=== PATIENT | female | born 1970 | race Caucasian/White ===

== ENCOUNTER 2018-11-14 20:38 | Emergency (ER) | payer OTHER ==
[~2018-11-14] VITALS: Ht 167.6 cm; Wt 116.7 kg
--- NOTE | 2018-11-14 22:44 | NUR ---
NA WHEN CALLED TO BE ROOMED
--- NOTE | 2018-11-14 22:50 | NUR ---
NA X2
[2018-11-14] MEDS ORDERED: LISI-167 PO (23:02)
--- NOTE | 2018-11-14 23:04 | NUR ---
pt presented with c/o ruq abd pain x4 day, nausea started 15 mins ago, denies vomiting or diarreha, denies injury. provided pt with gown, monitors applied, siderails up x2, call light within reach
[2018-11-14 23:14] LABS: BASOPHILS # (AUTO) 0.17 x10^3/uL (0-0.1); BASOPHILS % (AUTO) 1 % (0-1); EOSINOPHILS # (AUTO) 0.33 x10^3/uL (0-0.4); EOSINOPHILS % (AUTO) 3 % (1-7); LYMPHOCYTES # (AUTO) 3.56 x10^3/uL (1-3.4); LYMPHOCYTES % (AUTO) 27 % (22-44); MD NO; MEAN CORPUSCULAR HEMOGLOBIN 25.9 pg (27.0-34.8); MEAN CORPUSCULAR VOLUME 78.5 fL (80-100); MEAN PLATELET VOLUME 8.7 fL (7.4-10.4); MONOCYTES # (AUTO) 0.82 x10^3/uL (0.2-0.8); MONOCYTES % (AUTO) 6 % (2-9); NEUTROPHILS # (AUTO) 8.48 x10^3/uL (1.8-6.8); NEUTROPHILS % (AUTO) 64 % (42-75); PLATELET COUNT 507 x10^3/uL (130-400); RED BLOOD COUNT 4.95 x10^6/uL (3.82-5.3)
[2018-11-14 23:26] LABS: ALANINE AMINOTRANSFERASE 23 U/L (12-78); ALBUMIN 3.4 g/dL (3.4-5.0); ANION GAP 5 mmol/L (5-15); CALCIUM 8.5 mg/dL (8.5-10.1); CHLORIDE 110 mmol/L (98-107); CREATININE 0.88 mg/dL (0.55-1.02)
[2018-11-14 23:28] LABS: ALKALINE PHOSPHATASE 63 U/L (45-117); BILIRUBIN,TOTAL 0.1 mg/dL (0.2-1.0)
[2018-11-14 23:59] LABS: CULTURE INDICATED? NO; HCG UR SG 1.006 (1.003-1.030); MICROSCOPIC AUTO
[2018-11-15 00:39] VITALS: BP 143/85
== END 2018-11-15 00:42 | disposition home or self-care (01) ==
LOC: ED 23:34
DX: R10.11 Right upper quadrant pain (principal); R11.0 Nausea; Z87.891 Personal history of nicotine dependence; I10 Essential (primary) hypertension
CPT/HCPCS: 36415; 76700; 80053; 81001; 81025; 83690; 85025; 99284

== ENCOUNTER 2018-11-18 15:04 | Emergency (ER) | payer OTHER ==
[~2018-11-18] VITALS: Ht 167.6 cm; Wt 114.0 kg
[~2018-11-18 15:04] MED LIST: LISI-167 PO
[2018-11-18] MEDS ORDERED: ONDANSETRON ODT 4 MG PO ONE (15:30)
[2018-11-18 15:58] LABS: BASOPHILS # (AUTO) 0.05 x10^3/uL (0-0.1); BASOPHILS % (AUTO) 0 % (0-1); EOSINOPHILS # (AUTO) 0.27 x10^3/uL (0-0.4); EOSINOPHILS % (AUTO) 2 % (1-7); LYMPHOCYTES # (AUTO) 3.07 x10^3/uL (1-3.4); LYMPHOCYTES % (AUTO) 27 % (22-44); MD NO; MEAN CORPUSCULAR HEMOGLOBIN 25.7 pg (27.0-34.8); MEAN CORPUSCULAR HGB CONC 32.6 g/dL (32.4-35.8); MEAN CORPUSCULAR VOLUME 78.6 fL (80-100); MEAN PLATELET VOLUME 8.8 fL (7.4-10.4); MONOCYTES # (AUTO) 0.67 x10^3/uL (0.2-0.8); MONOCYTES % (AUTO) 6 % (2-9); NEUTROPHILS # (AUTO) 7.34 x10^3/uL (1.8-6.8); NEUTROPHILS % (AUTO) 64 % (42-75); PLATELET COUNT 528 x10^3/uL (130-400); RED BLOOD COUNT 5.18 x10^6/uL (3.82-5.3); RED CELL DISTRIBUTION WIDTH 16.3 % (9.6-15.2)
[2018-11-18] MEDS ORDERED: PLEASE ENTER HEIGHT AND WEIGHT MC SCH (16:00)
[2018-11-18 16:11] LABS: ALBUMIN 3.6 g/dL (3.4-5.0); ANION GAP 6 mmol/L (5-15); CALCIUM 8.6 mg/dL (8.5-10.1); CHLORIDE 111 mmol/L (98-107)
[2018-11-18 16:17] LABS: ALANINE AMINOTRANSFERASE 21 U/L (12-78); ALKALINE PHOSPHATASE 63 U/L (45-117); BILIRUBIN,TOTAL 0.5 mg/dL (0.2-1.0); CREATININE 0.87 mg/dL (0.55-1.02); TOTAL PROTEIN 7.2 g/dL (6.4-8.2)
[2018-11-18 16:37] VITALS: BP 123/79
--- NOTE | 2018-11-18 16:37 | NUR ---
Pt reports RUQ pain x 3-4 days. States unable to follow up with GI, and pain is increasingly worse.
[2018-11-18 16:42] LABS: HCG UR SG 1.034 (1.003-1.030)
[2018-11-18 16:43] LABS: MICROSCOPIC INDICATED
[2018-11-18 16:51] LABS: CULTURE INDICATED? YES
[2018-11-18] MEDS ORDERED: DICYCLOMINE 10 MG/ML, 2ML IM ONE (17:00)
[2018-11-18] MEDS ORDERED: PROMETHAZINE 25 MG/ML, 1ML IM ONE (17:00)
[2018-11-18] MEDS ORDERED: PROMETHAZINE 25 MG/ML, 1ML ONE (17:10)
[2018-11-18] MEDS ORDERED: DICYCLOMINE 10 MG/ML, 2ML ONE (17:11)
== END 2018-11-18 18:11 | disposition home or self-care (01) ==
LOC: ED 16:37
DX: R10.11 Right upper quadrant pain (principal); R11.2 Nausea with vomiting, unspecified; I10 Essential (primary) hypertension; Z87.891 Personal history of nicotine dependence
CPT/HCPCS: 36415; 80053; 81001; 81025; 83690; 85025; 87086; 96372; 99283; J0500; J2550; Q0162

== ENCOUNTER 2018-11-25 13:48 | Emergency (ER) | payer OTHER ==
[~2018-11-25] VITALS: Ht 167.6 cm; Wt 115.0 kg
[2018-11-25] MEDS ORDERED: ONDANSETRON 2MG/ML, 2ML IVPush ONE (14:30)
[2018-11-25] MEDS ORDERED: HYDROmorphone 1 MG/ML, 1ML VIAL ONE ×2 (14:30→16:04)
[2018-11-25] MEDS ORDERED: ONDANSETRON 2MG/ML, 2ML ONE (14:30)
[2018-11-25] MEDS ORDERED: SODIUM CHLORIDE FLUSH 10ML SYR IVF ONE (14:30)
[2018-11-25] MEDS: HYDROmorphone 2 MG/ML, 1ML IVPush PRN ×2 (14:34→16:12)
[2018-11-25 14:35] LABS: BASOPHILS # (AUTO) 0.18 x10^3/uL (0-0.1); BASOPHILS % (AUTO) 1 % (0-1); EOSINOPHILS # (AUTO) 0.22 x10^3/uL (0-0.4); EOSINOPHILS % (AUTO) 2 % (1-7); LYMPHOCYTES # (AUTO) 3.37 x10^3/uL (1-3.4); LYMPHOCYTES % (AUTO) 26 % (22-44); MD NO; MEAN CORPUSCULAR HEMOGLOBIN 25.4 pg (27.0-34.8); MEAN CORPUSCULAR HGB CONC 32.3 g/dL (32.4-35.8); MEAN CORPUSCULAR VOLUME 78.7 fL (80-100); MEAN PLATELET VOLUME 8.9 fL (7.4-10.4); MONOCYTES # (AUTO) 0.73 x10^3/uL (0.2-0.8); MONOCYTES % (AUTO) 6 % (2-9); NEUTROPHILS # (AUTO) 8.58 x10^3/uL (1.8-6.8); NEUTROPHILS % (AUTO) 66 % (42-75); PLATELET COUNT 455 x10^3/uL (130-400); RED CELL DISTRIBUTION WIDTH 16.3 % (9.6-15.2)
[2018-11-25 14:44] LABS: ALBUMIN 3.4 g/dL (3.4-5.0); ANION GAP 8 mmol/L (5-15); CALCIUM 8.5 mg/dL (8.5-10.1); CHLORIDE 110 mmol/L (98-107)
[2018-11-25 14:47] LABS: ALANINE AMINOTRANSFERASE 20 U/L (12-78); ALKALINE PHOSPHATASE 55 U/L (45-117); BILIRUBIN,TOTAL 0.2 mg/dL (0.2-1.0); CREATININE 0.85 mg/dL (0.55-1.02); TOTAL PROTEIN 6.8 g/dL (6.4-8.2)
[2018-11-25 16:28] LABS: MICROSCOPIC NOT IND
[2018-11-25 16:30] LABS: CULTURE INDICATED? NO
[2018-11-25 16:47] VITALS: BP 134/77
== END 2018-11-25 17:21 | disposition other institution (70) ==
LOC: ED 14:16
DX: K80.50 Calculus of bile duct without cholangitis or cholecystitis without obstruction (principal); R10.11 Right upper quadrant pain; I10 Essential (primary) hypertension; Z87.891 Personal history of nicotine dependence
CPT/HCPCS: 36415; 80053; 81003; 83690; 85025; 96374; 96375; 96376; 99283; J1170; J2405

== ENCOUNTER 2018-12-07 12:10 | Outpatient (CLI) | payer OTHER | END 2018-12-07 23:59 | disposition home or self-care (01) | LOC: STAR 12:10 | PROVIDERS: ATTEND Surgery | DX: Z02.9 Encounter for administrative examinations, unspecified (principal) ==

== ENCOUNTER 2018-12-11 08:25 | Day surgery (SDC) | payer OTHER ==
[~2018-12-11] VITALS: Ht 167.6 cm; Wt 114.6 kg
[~2018-12-11 08:25] MED LIST changes: +BUPIVACAINE/PF-EPI 0.5% 1:200K ONE
[2018-12-11] MEDS ORDERED: METOPROLOL 1 MG/ML, 5ML IV PRN (09:00)
[2018-12-11] MEDS ORDERED: LABETALOL 5MG/ML, 20ML IV PRN (09:00)
[2018-12-11] MEDS ORDERED: PROCHLORPERAZINE 5 MG/ML, 2ML IV PRN (09:00)
[2018-12-11] MEDS ORDERED: GABAPENTIN 300 MG CAPSULE PO ONE (09:00)
[2018-12-11] MEDS ORDERED: MEPERIDINE/PF 25MG/0.5ML IVPush PRN (09:00)
[2018-12-11] MEDS ORDERED: hydrALAzine 20 MG/ML, 1ML IV PRN (09:00)
[2018-12-11] MEDS ORDERED: ACETAMINOPHEN 500 MG TABLET PO ONE (09:00)
[2018-12-11] MEDS ORDERED: DIPHENHYDRAMINE 50 MG/ML, 1ML IVPush PRN (09:00)
[2018-12-11] MEDS ORDERED: PROMETHAZINE 25 MG/ML, 1ML IV PRN (09:00)
[2018-12-11] MEDS ORDERED: HALOPERIDOL 5 MG/ML IV PRN (09:00)
[2018-12-11] MEDS ORDERED: OXYcodone 5 MG/5 ML ORAL.SOL UDC PO PRN (09:00)
[2018-12-11 09:05] VITALS: BP 132/87
[2018-12-11] MEDS ORDERED: LACTATED RINGERS 1,000 ML IV SCH (09:18)
[2018-12-11 09:31] LABS: HCG UR SG 1.023 (1.003-1.030)
[2018-12-11] MEDS ORDERED: FENTANYL PF 100 MCG/2ML ONE ×3 (09:37→11:13)
[2018-12-11] MEDS ORDERED: KETOROLAC 30 MG/1 ML ONE (10:04)
[2018-12-11] MEDS ORDERED: SUCCINYLCHOLINE 20 MG/ML, 10ML ONE (10:34)
[2018-12-11] MEDS ORDERED: PROPOFOL 10 MG/ML, 20ML ONE (10:34)
[2018-12-11] MEDS ORDERED: NEOSTIGMINE 1 MG/ML, 10ML ONE (10:34)
[2018-12-11] MEDS ORDERED: GLYCOPYRROLATE 0.2MG/1ML, 5ML ONE (10:34)
[2018-12-11] MEDS ORDERED: CEFAZOLIN 1,000 MG ONE (10:34)
[2018-12-11] MEDS ORDERED: ROCURONIUM 10MG/ML,5ML ONE (10:34)
[2018-12-11] MEDS ORDERED: ONDANSETRON 2MG/ML, 2ML ONE (10:34)
[2018-12-11] MEDS ORDERED: DEXAMETHASONE 4 MG/ML, 1ML ONE (10:34)
[2018-12-11] MEDS ORDERED: OXYcodone 5 MG/5 ML ORAL.SOL UDC ONE (11:13)
[2018-12-11] MEDS: FENTANYL PF 100 MCG/2ML IV PRN ×2 (11:16→11:30)
[2018-12-11] MEDS ORDERED: HYDROmorphone 2 MG/ML, 1ML ONE (11:38)
[2018-12-11] MEDS: HYDROmorphone 2 MG/ML, 1ML IVPush PRN ×3 (11:40→11:59)
[2018-12-11] MEDS ORDERED: HYDROcodone/APAP 5/325 TABLET ONE (15:35)
[2018-12-11] MEDS ORDERED: HYDROcodone/APAP 5/325 TABLET PO ONE (16:00)
== END 2018-12-11 16:30 | disposition home or self-care (01) ==
LOC: OUT 08:25
PROVIDERS: ATTEND Surgery
DX: K81.1 Chronic cholecystitis (principal); K66.0 Peritoneal adhesions (postprocedural) (postinfection); I10 Essential (primary) hypertension; F17.200 Nicotine dependence, unspecified, uncomplicated; Z79.899 Other long term (current) drug therapy
CPT/HCPCS: 47562; 81025; 88304; J0330; J0690; J1100; J1170; J1885; J2405; J2704; J2710; J3010; J7120

== ENCOUNTER 2019-03-15 10:17 | Day surgery (SDC) | payer OTHER ==
[~2019-03-15] VITALS: Ht 167.6 cm; Wt 112.8 kg
[2019-03-15 10:52] VITALS: BP 130/90
== END 2019-03-15 15:40 | disposition home or self-care (01) ==
LOC: OUT 10:17
PROVIDERS: ATTEND Colon & Rectal Surgery
DX: K60.3 Anal fistula (principal); I10 Essential (primary) hypertension; Z87.891 Personal history of nicotine dependence; Z90.49 Acquired absence of other specified parts of digestive tract; E66.01 Morbid (severe) obesity due to excess calories; Z68.41 Body mass index [BMI] 40.0-44.9, adult; K21.9 Gastro-esophageal reflux disease without esophagitis
CPT/HCPCS: 36415; 46275; 80053; 81025; J1100; J1885; J2250; J2405; J2704; J3010

== ENCOUNTER 2019-03-20 14:30 | Emergency (ER) | payer OTHER ==
[~2019-03-20] VITALS: Ht 167.6 cm; Wt 115.0 kg
[2019-03-20 16:21] VITALS: BP 107/59
== END 2019-03-20 17:08 | disposition home or self-care (01) ==
LOC: ED 16:44
DX: K59.00 Constipation, unspecified (principal); R10.84 Generalized abdominal pain; R42 Dizziness and giddiness; K62.89 Other specified diseases of anus and rectum
CPT/HCPCS: 36415; 80048; 81003; 85025; 99284

== ENCOUNTER 2019-06-26 12:13 | Emergency (ER) | payer OTHER ==
[~2019-06-26] VITALS: Ht 167.6 cm; Wt 168.2 kg
[~2019-06-26 12:13] MED LIST changes: -BUPIVACAINE/PF-EPI 0.5% 1:200K ONE; +PANT40TA5 PO; +[UNRECOGNIZED DRUG - OTHER]
[2019-06-26 12:36] VITALS: BP 141/87
--- NOTE | 2019-06-26 13:20 | NUR ---
PT PRESENTS TO ED WITH C/O COUGH AND BILATERAL RIB PAIN WITH COUGHING X 1 WEEK. PT A&O, RESPS EVEN AND UNLABORED, NADN. AWAITING CXR RESULTS AND DISPO. REPORT GIVEN TO YOBANY CHURCH.
[2019-06-26] MEDS ORDERED: DEXAMETHASONE 4 MG TABLET PO ONE (13:30)
--- NOTE | 2019-06-26 13:36 | NUR ---
report to YOBANY Hoffmann
[2019-06-26] MEDS ORDERED: DEXAMETHASONE 4 MG TABLET ONE (14:15)
--- NOTE | 2019-06-26 14:18 | NUR ---
MEDICATED PER EMAR ALSO PROVIDED W/ PO FLUIDS PTIENT DISCHARGED RIGHT AFTER MEDICATION. 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
== END 2019-06-26 14:21 | disposition home or self-care (01) ==
LOC: ED 14:00
DX: J20.8 Acute bronchitis due to other specified organisms (principal); B34.9 Viral infection, unspecified; I10 Essential (primary) hypertension
CPT/HCPCS: 71046; 99283